=== PATIENT | female | born 1945 | race Caucasian/White ===

== ENCOUNTER → 2021-04-08 | Outpatient (CLI) | payer MEDICARE ==
[~2021-04-08] MED LIST: LEVO137T24 PO; LISI10TA24 PO
== END | disposition home or self-care (01) ==
LOC: RAH 11:29
PROVIDERS: ATTEND Family Medicine
DX: S32.010A Wedge compression fracture of first lumbar vertebra, initial encounter for closed fracture (principal); M51.36 Other intervertebral disc degeneration, lumbar region; M48.061 Spinal stenosis, lumbar region without neurogenic claudication; X58.XXXA Exposure to other specified factors, initial encounter; Y93.89 Activity, other specified; Y92.89 Other specified places as the place of occurrence of the external cause; Y99.8 Other external cause status
CPT/HCPCS: 72148

== ENCOUNTER → 2021-09-19 | Outpatient (CLI) | payer OTHER | END | disposition home or self-care (01) | LOC: OIH 13:23 | PROVIDERS: ATTEND Internal Medicine Cardiovascular Disease | DX: Z13.6 Encounter for screening for cardiovascular disorders (principal) | CPT/HCPCS: 75571 ==

== ENCOUNTER → 2024-10-15 | Outpatient (CLI) | payer MEDICARE ==
--- NOTE | 2024-10-15 16:57 | HMCIMG ---
MR SPINAL CANAL, THORAC WO CON HISTORY: Kyphosis and pain COMPARISON: None TECHNIQUE: MRI of the thoracic spine was performed utilizing multiple pulse sequences in axial, coronal and sagittal plane. Patient was not given contrast through intravenous route. FINDINGS: No abnormal signal intensity is seen of the visualized bony structure. Compression fractures are seen involving T12 and L1 with 50% and 80% loss of height respectively with bone edema suspicious for subacute fractures. There is kyphosis. There is scoliosis. Degenerative disc signals are present at all thoracic spine levels. The thoracic cord is of normal signal intensity without cord compression or impingement. At the T11-12 level, there is spondylotic disc with central disc protrusion and bilateral ligamentum flavum hypertrophy causing anterior CSF space effacement with bilateral lateral recess stenosis and bilateral neural foraminal stenosis. The central canal measures approximately 8 mm in its anterior posterior dimension. At the T12-L1 level, there is spondylotic disc with central disc protrusion and bilateral ligamenta flava hypertrophy causing anterior CSF space effacement with bilateral lateral recess stenosis and bilateral neural foraminal stenosis. The central canal measures approximately 5.4 mm in its anterior posterior dimension. At the L1-L2 level, there is spondylotic disc with central disc protrusion causing anterior CSF space effacement with bilateral lateral recess stenosis and bilateral neural foraminal stenosis. The central canal measures approximately 5.7 mm in its anterior posterior dimension. IMPRESSION: 1. DJD with spondylosis. Compression fractures at T12 and L1 with 50% percent loss of height respectively. There is kyphoscoliosis.
== END | disposition home or self-care (01) ==
LOC: RAH 12:51
PROVIDERS: ATTEND Physical Medicine & Rehabilitation
DX: S22.089A Unspecified fracture of T11-T12 vertebra, initial encounter for closed fracture (principal); M47.814 Spondylosis without myelopathy or radiculopathy, thoracic region; M48.05 Spinal stenosis, thoracolumbar region; M51.24 Other intervertebral disc displacement, thoracic region; M41.84 Other forms of scoliosis, thoracic region; M89.8X8 Other specified disorders of bone, other site; R29.890 Loss of height; R26.81 Unsteadiness on feet; X58.XXXA Exposure to other specified factors, initial encounter; Y93.89 Activity, other specified; Y92.89 Other specified places as the place of occurrence of the external cause; Y99.8 Other external cause status
CPT/HCPCS: 72146

== ENCOUNTER → 2024-10-17 | Outpatient (CLI) | payer MEDICARE ==
--- NOTE | 2024-10-17 16:56 | HMCIMG ---
MR BRAIN WO CON HISTORY: Stroke COMPARISON: None TECHNIQUE: MRI of the brain was performed utilizing multiple pulse sequences in axial, coronal and sagittal planes. Patient was not given contrast through intravenous route. FINDINGS: The ventricles and extraventricular CSF spaces are dilated consistent with cerebral atrophy. Nonspecific white matter changes are seen. There is no midline shift, mass effect or herniation. No subacute hemorrhage is seen. No MR evidence of acute infarct is seen in the diffusion weighted images. Cerebellar tonsils are in normal position. No evidence of mucoperiosteal thickening is seen of the visualized paranasal sinuses. No MR evidence of a mass lesion is seen in this noncontrast study. IMPRESSION: 1. No MR evidence of acute infarct is seen in the diffusion weighted images. Atrophy with white matter changes.
--- NOTE | 2024-10-17 16:58 | HMCIMG ---
MR SPINAL CANAL, LUMBAR WO CON HISTORY: Pain and kyphosis COMPARISON: None TECHNIQUE: MRI of the lumbar spine was performed utilizing multiple pulse sequences in axial , coronal and sagittal plane. Patient was not given contrast through intravenous route. FINDINGS: No abnormal signal intensity is seen of the visualized bony structure. Compression fracture is seen involving T12 and L1 with 50% and 70% loss of height respectively. There is reversal of normal lumbar curvature which may be related to muscle spasm or positioning. Degenerative disc signals are present at all lumbar spine levels. Visualized distal conus is unremarkable. At the T12-L1 level, there is spondylotic disc with bilateral ligamentum flavum hypertrophy and disc protrusion causing anterior thecal sac compression with bilateral lateral recess stenosis and bilateral neural foraminal stenosis. The thecal sac measures approximately 6.2 mm in its anterior posterior dimension. At the L1-L2 level, there is spondylotic disc versus central disc protrusion causing anterior thecal sac compression with bilateral lateral recess stenosis and bilateral neural foraminal stenosis. The thecal sac measures approximately 8.2 mm in its anterior posterior dimension. IMPRESSION: 1. DJD with spondylosis as described above. Compression fractures at T12 and L1.
== END | disposition home or self-care (01) ==
LOC: RAH 12:51
PROVIDERS: ATTEND Physical Medicine & Rehabilitation
DX: S22.080A Wedge compression fracture of T11-T12 vertebra, initial encounter for closed fracture (principal); S32.010A Wedge compression fracture of first lumbar vertebra, initial encounter for closed fracture; R26.81 Unsteadiness on feet; M40.209 Unspecified kyphosis, site unspecified; G31.9 Degenerative disease of nervous system, unspecified; G93.89 Other specified disorders of brain; M47.816 Spondylosis without myelopathy or radiculopathy, lumbar region; M48.061 Spinal stenosis, lumbar region without neurogenic claudication; X58.XXXA Exposure to other specified factors, initial encounter; Y93.89 Activity, other specified; Y92.89 Other specified places as the place of occurrence of the external cause; Y99.8 Other external cause status
CPT/HCPCS: 70551; 72148

== ENCOUNTER → 2024-10-30 | Outpatient (CLI) | payer MEDICARE ==
--- NOTE | 2024-10-30 15:55 | HMCIMG ---
BONE DENSITOMETRY: HISTORY: Unspecified fracture of T11-T12 vertebra, initial encounter for closed frac Comparison: none FINDINGS: BMD measured at AP spine L1-L4 is 1.112 g/cm2 with a T-score of 0.6 Bone density is up to 10% below young normal. This patient is considered normal according to WHO criteria. Fracture risk is low. BMD measured at the distal third of the wrist left side is 0.460 g/cm2 with a T-score of -3.9 This patient is considered osteoporotic according to WHO criteria. Fracture risk is high. IMPRESSION: Osteoporosis. High risk for atraumatic fractures. Treatment and follow-up recommended.
== END | disposition home or self-care (01) ==
LOC: RAH 14:14
PROVIDERS: ATTEND Physical Medicine & Rehabilitation
DX: S22.089A Unspecified fracture of T11-T12 vertebra, initial encounter for closed fracture (principal); M81.0 Age-related osteoporosis without current pathological fracture; M40.209 Unspecified kyphosis, site unspecified; R26.81 Unsteadiness on feet; X58.XXXA Exposure to other specified factors, initial encounter; Y93.89 Activity, other specified; Y92.89 Other specified places as the place of occurrence of the external cause; Y99.8 Other external cause status
CPT/HCPCS: 77080